=== PATIENT | female | born 1960 | race Caucasian/White ===

== ENCOUNTER 2018-11-26 02:12 | Emergency (ER) | payer OTHER ==
[~2018-11-26] VITALS: Ht 170.2 cm; Wt 89.8 kg
[2018-11-26 02:20] VITALS: BP 143/73
[2018-11-26] MEDS ORDERED: HYDR-3164 PO (02:31)
[2018-11-26] MEDS ORDERED: KETOROLAC 30 MG/ML VIAL. IM ONE (02:45)
--- NOTE | 2018-11-26 02:55 | PHYS DOC ---
Past Medical History Past Medical History: Hyperthyroid Past Surgical History: Alcohol Use: Occasionally Drug Use: None Adult General Chief Complaint Chief Complaint: UPPER EXTREMITY INJURY HPI HPI Patient is a 58 year old f who sustained a fall through a ceiling 2 days ago she was trying to fix a rental home she landed on the hardwood floor she landed on her buttock and she actually is doing okay except for some significant swelling to the left forearm is bruised it is painful and brought her here tonight because she was having trouble sleeping no numbness no neck pain no headache no loss of consciousness no heel pain. Current Medications Current Medications Current Medications Medications (Trade) Dose Ordered Sig/Alma Start Time Stop Time Status Last Admin Dose Admin Ketorolac Tromethamine (Toradol 30mg Vial) 30 mg 1X ONCE 11/26/18 02:45 11/26/18 02:46 DC 11/26/18 02:43 30 MG Allergies Allergies Allergies Coded Allergies Type Severity Reaction Last Updated Verified No Known Drug Allergies 11/26/18 No Physical Exam Physical Exam Constitutional: Well developed, well nourished, no acute distress, non-toxic appearance. [] HENT: Normocephalic, atraumatic, bilateral external ears normal, oropharynx moist, no oral exudates, nose normal. [] Eyes: PERRLA, EOMI, conjunctiva normal, no discharge. [] Pulmonary: Normal respiratory effort no increased work of breathing no obvious chest wall trauma Abdomen: Bowel sounds normal, soft, no tenderness, no masses, no pulsatile masses. [] Skin: Warm, dry, no erythema, no rash. [] Back: No tenderness, no CVA tenderness. [] Extremities: Left forearm there is an area of ecchymosis from the mid forearm down towards the wrist very stages of healing no laceration pulses intact sensation intact strength is intact distally no focal bony tenderness. Neurologic: Alert and oriented X 3, normal motor function, normal sensory function, no focal deficits noted. [] Psychologic: Affect normal, judgement normal, mood normal. [] Current Patient Data Vital Signs Vital Signs Date Time Temp Pulse Resp B/P (MAP) Pulse Ox O2 Delivery O2 Flow Rate FiO2 11/26/18 02:20 97.9 77 16 143/73 (96) 97 Room Air 97.9 EKG EKG [] Radiology/Procedures Radiology/Procedures [] Course & Med Decision Making Course & Med Decision Making Pertinent Labs and Imaging studies reviewed. (See chart for details) []Contusion with ecchymosis to the left forearm x-ray was negative recommended ice given a short course of pain medication to help her sleep the next couple of days and then symptoms should resolve without further issue. Dragon Disclaimer Dragon Disclaimer This electronic medical record was generated, in whole or in part, using a voice recognition dictation system. Departure Departure Impression: Primary Impression: Contusion Disposition: HOME, SELF-CARE Condition: STABLE Patient Instructions: Contusion, [id number] Scripts Hydrocodone/Apap 5-325 (NORCO 5-325 TABLET) 1 Each Tablet 1-2 EACH PO PRN Q6HRS PRN for PAIN, #8 as needed for pain Prov: LISBETH URIOSTEGUI MD 11/26/18 LISBETH URIOSTEGUI MD Nov 26, 2018 02:55
--- NOTE | 2018-11-26 04:33 | RAD ---
Left forearm 2 views. HISTORY: Fall, pain and bruising AP and lateral views were taken of the left forearm. There is no acute fracture or osseous abnormality. IMPRESSION: 1. No fracture noted in the left forearm. Electronically signed by: Jeovanny Whaley MD (11/26/2018 4:28 AM) [id number]
== END 2018-11-26 02:50 | disposition home or self-care (01) ==
LOC: ER 02:12
DX: S50.12XA Contusion of left forearm, initial encounter (principal); W17.89XA Other fall from one level to another, initial encounter; Y93.89 Activity, other specified; Y92.89 Other specified places as the place of occurrence of the external cause; Y99.8 Other external cause status
CPT/HCPCS: 73090; 96372; 99283; J1885

== ENCOUNTER → 2019-11-28 | Outpatient (CLI) | payer OTHER ==
[~2019-11-28] MED LIST: HYDR-3164 PO
--- NOTE | 2019-11-28 11:48 | KCIC ---
EXAM: Thyroid sonogram. HISTORY: Thyromegaly. TECHNIQUE: Sonographic imaging of the thyroid was performed. COMPARISON: None. FINDINGS: The right thyroid lobe measures 5.5 x 2.4 x 2.0 cm. The left thyroid lobe measures 5.5 x 2.7 x 2.1 cm. The isthmus measures 1.3 x 3.7 cm. The thyroid parenchyma is diffusely heterogeneous in echotexture and echogenicity. The thyroid parenchyma is hypervascular. No discrete solid or cystic thyroid lesion is seen. IMPRESSION: Diffusely enlarged and heterogeneous and hypervascular thyroid. This can be seen as a sequela of thyroiditis. No discrete nodule seen. Electronically signed by: Josefina Flores MD (11/28/2019 11:45 AM) [place] [id number]
--- NOTE | 2019-11-29 11:21 | KCIC ---
Bilateral digital screening mammograms Reason for examination: Routine screening. Comparison is made to previous study dated May 21, 2011 Routine CC and MLO digital views obtained. Interpretation was made with the benefit of CAD. The skin and nipples show no abnormalities. No abnormal lymph nodes are seen. The breast parenchyma is scattered fibroglandular elements. (Breast density: Category B.) There are no spiculated masses, suspicious calcifications or architectural distortions. Nodularity of the breast tissue demonstrated. Right upper outer breast intramammary lymph nodes are stable, benign. At the left lower inner breast 7:00 position 4 cm from the nipple there is a subcentimeter oval nodularity of both the CC and MLO views which could represent a partially circumscribed mass new from the prior study. Impression: Possible small mass of the left lower inner breast 7:00 position 4 cm from the nipple. Further evaluation with left breast ultrasound is advised. BI-RADS Category 0: Incomplete examination. "Our facility is accredited by the [employer]amm[employer]." This patient's information has been entered into a reminder system for the patient to be notified with the results of her examination and a target date for the next mammogram. Electronically signed by: Montrell Benoit MD (11/29/2019 11:18 AM) [id number]
== END | disposition home or self-care (01) ==
LOC: KCIC US 09:49
PROVIDERS: ATTEND Nurse Practitioner Family
DX: Z12.31 Encounter for screening mammogram for malignant neoplasm of breast (principal); N63.24 Unspecified lump in the left breast, lower inner quadrant; E04.9 Nontoxic goiter, unspecified
CPT/HCPCS: 76536; 77067

== ENCOUNTER → 2019-12-05 | Outpatient (CLI) | payer OTHER ==
--- NOTE | 2019-12-05 11:11 | KCIC ---
Left breast ultrasound: Reason for examination: Nodular density in the lower inner quadrant of the left breast on mammographic screening. Ultrasound examination of the left breast and axilla was performed. In the 7:00 position 3 cm from the nipple and corresponding to the area of mammographic concern, there is a 7.6 mm hypoechoic septated circumscribed nodule present consistent with a fibrocystic lesion. No suspicious nodules are seen. No abnormal appearing lymph nodes are seen in the axilla. IMPRESSION: 7.6 mm benign-appearing fibrocystic type nodule at the 7:00 position which corresponds to the mammographic finding. Recommend 6 month follow-up with ultrasound. BI-RADS Category 3: Probably Benign. "Our facility is accredited by the [employer] Mammography [employer]." This patient's information has been entered into a reminder system for the patient to be notified with the results of her examination and a target date for the next mammogram. Electronically signed by: Sirisha Perez MD (12/05/2019 11:08 AM) [id number]
== END | disposition home or self-care (01) ==
LOC: KCIC US 10:07
PROVIDERS: ATTEND Nurse Practitioner Family
DX: N60.02 Solitary cyst of left breast (principal)
CPT/HCPCS: 76641